=== PATIENT | male | born 1970 | race Hispanic/Latino ===

== ENCOUNTER → 2021-01-17 | Outpatient (CLI) | payer MEDICARE | LOC: LAB 06:22 | PROVIDERS: ATTEND Anesthesiology | DX: Z01.818 Encounter for other preprocedural examination (principal) | CPT/HCPCS: 36415; 84132 ==

== ENCOUNTER → 2021-02-14 | Outpatient (CLI) | payer MEDICARE | LOC: LAB 06:57 | PROVIDERS: ATTEND Anesthesiology | DX: Z01.812 Encounter for preprocedural laboratory examination (principal) | CPT/HCPCS: 36415; 84132 ==